=== PATIENT | male | born 1965 ===

== ENCOUNTER 2019-01-15 12:28 | Day surgery (SDC) | payer BC ==
[~2019-01-15] VITALS: Ht 188 cm; Wt 90.0 kg
[2019-01-15] VITALS (7 sets, daily range): BP systolic 99–141; BP diastolic 55–98; PULSE 76–87; TEMP 97.5–99.1
[2019-01-15] MEDS ORDERED: FLEXERIL 1010 MG/TAB PO (12:59)
[2019-01-15] MEDS ORDERED: OXYCONTIN30 MG PO (12:59)
[2019-01-15] MEDS ORDERED: HCTZ 25MG TAB25 MG PO (13:00)
[2019-01-15] MEDS ORDERED: TYLENOL 500MG500 MG PO (14:51)
--- NOTE | 2019-01-15 15:08 | NUR ---
Patient arrives back to [facility] alert, reports pain under control, denies nausea. Patient monitor applied, vitals stable. Patient's spouse brought to bedside.
--- NOTE | 2019-01-15 15:20 | NUR ---
Patient given toast, water and soda at this time.
--- NOTE | 2019-01-15 17:35 | NUR ---
PATIENT ARRIVED TO UNIT FROM PACU. PATIENT HAD ROBOTIC BILATERAL INGUINAL HERNIA REPAIRS WITH MESH. PATIENT HAS 3 LAP SITES WHICH ARE CLEAN, DRY, AND INTACT AND COVERED WITH BANDAID. PATIENT IS ALERT AND ORIENTED. PATIENT VSS. PATIENT DENIES PAIN AT THIS TIME. FABIOLANET HAS 20G IV IN RIGHT HAND. PATIENT DOES HAVE SCROTAL SUPPORT IN PLACE DUE TO SWELLING THAT TOOK PLACE DURING SURGERY. PATIENT IS SMOKER AND IS ON O2 AT 3L WITH O2 AT 95%. PATIENT TO DISCHARGE LATER TODAY. PATIENT CALL LIGHT WITHIN REACH, WILL CONTINUE TO MONITOR
--- NOTE | 2019-01-15 19:15 | NUR ---
Patient anxious to discharge. Has voided, drank fluids and denies pain. Reviewed discharge instructions with patient and spouse. Has no prescriptions to fill. Is to follow up in [address] Brand in [place]. IV site dc'd, angiocath intact.
--- NOTE | 2019-01-15 19:30 | NUR ---
Discharged via ambulatory status to private car. Personal belongings sent with patient as well as discharge instructions.
== END 2019-01-15 19:30 | disposition home or self-care (01) ==
LOC: SDCO 12:28 → SURG 17:30 → SDCO 19:30
DX: K40.20 Bilateral inguinal hernia, without obstruction or gangrene, not specified as recurrent (principal); D17.6 Benign lipomatous neoplasm of spermatic cord; K66.0 Peritoneal adhesions (postprocedural) (postinfection); G89.29 Other chronic pain; Z98.1 Arthrodesis status; Z96.641 Presence of right artificial hip joint; I10 Essential (primary) hypertension; Z98.52 Vasectomy status; F17.210 Nicotine dependence, cigarettes, uncomplicated; K21.9 Gastro-esophageal reflux disease without esophagitis; R20.2 Paresthesia of skin; M62.81 Muscle weakness (generalized); M19.90 Unspecified osteoarthritis, unspecified site
CPT/HCPCS: OP; C1781; J0690; J1100; J1885; J2250; J2405; J2704; J3010; J7120